=== PATIENT | female | born 1965 | race Hispanic/Latino ===

== ENCOUNTER 2024-05-03 12:53 | Emergency (ER) | payer SELFPAY ==
[~2024-05-03] VITALS: Ht 162.6 cm; Wt 90.7 kg
[2024-05-03 13:06] VITALS: PULSE 86; RESP 18; TEMP 98.5
[2024-05-03] MEDS: HYDROCODONE/APAP 5MG-325MG TAB PO ONE (13:16)
[2024-05-03 14:09] VITALS: O2SAT 85
== END 2024-05-03 14:16 | disposition home or self-care (01) ==
LOC: FSED 12:58
DX: S63.591A Other specified sprain of right wrist, initial encounter (principal); W01.0XXA Fall on same level from slipping, tripping and stumbling without subsequent striking against object, initial encounter; Y93.01 Activity, walking, marching and hiking; Y92.89 Other specified places as the place of occurrence of the external cause
CPT/HCPCS: 99283